=== PATIENT | male | born 1985 | race Caucasian/White ===

== ENCOUNTER 2019-06-04 09:30 | Emergency (ER) | payer OTHER ==
[~2019-06-04] VITALS: Ht 180.3 cm; Wt 73.5 kg
[2019-06-04] MEDS ORDERED: RANITIDINE 150150 M1 PO (09:53)
[2019-06-04] MEDS ORDERED: TRAZODONE 150150 M1 PO (09:53)
[2019-06-04] MEDS ORDERED: PROZAC10 M1 PO (09:54)
[2019-06-04] MEDS ORDERED: AMOXICILLIN 50500 MG PO (10:38)
[2019-06-04] MEDS ORDERED: MEDROLDOSEPACK PO (10:38)
[2019-06-04 10:58] LABS: HEMATOCRIT 41.9 % (42.0-52.0); HEMOGLOBIN 14.3 gm/dL (14.0-18.0); MCHC 34.1 g/dL (28.0-37.0); MPV 8.5 fl. (7.2-11.1); NUCLEATED RBCS 0 /100WBC; PLATELET COUNT* 219 thou/uL (150-400); RBC 4.76 mil/uL (4.50-6.00); RDW-CV 12.6 % (10.5-14.5); WBC 6.6 thou/uL (4.0-11.0)
[2019-06-04 11:09] LABS: CALCIUM 9.1 mg/dL (8.5-10.1); POTASSIUM 3.4 mmol/L (3.5-5.1)
[2019-06-04 11:14] LABS: ALBUMIN 4.4 g/dL (3.4-5.0); TOTAL BILIRUBIN 0.6 mg/dL (<0.1-1.0); TOTAL PROTEIN 7.9 g/dL (6.4-8.2)
[2019-06-04 11:39] LABS: ABSOLUTE LYMPHOCYTES 0.6 thou/uL (0.8-5.3); ABSOLUTE MONOCYTES 0.3 thou/uL (0.0-1.2); ABSOLUTE NEUTROPHILS 5.7 thou/uL (1.6-8.1); PLATELET ESTIMATE ADEQUATE
[2019-06-04 11:50] VITALS: BP 104/68
--- NOTE | 2019-06-05 10:55 | EKG ---
[place] [address] ELECTROCARDIOGRAM REPORT Name: JORY MARINA Room: [facility]#: [id number] Admission: 06/04/19 Attend Phys: Discharge: 06/04/19 Date of : 87 Report #: [id number] THIS REPORT FOR: //name// [facility] ED Test Date: 2019-06-04 Test Time: 10:44:34 Pat Name: JORY SALAS Department: Room: Gender: M Cancer Registry Manager: RANDY : 1985 Requested By: Dayo Malin Order Number: [id number] MD: Dean Thakkar Measurements Intervals [place] Rate: 83 P: 74 ID: [id number] QRS: 93 QRSD: 101 T: 57 QT: 367 QTc: 432 Interpretive Statements Sinus rhythm Borderline right axis deviation RSR' in V1 or V2, probably normal variant No previous ECG available for comparison Electronically Signed On 06-05-2019 10:55:15 TIME CHECKER by Dean Thakkar [email or web address] <ELECTRONICALLY SIGNED> By: Dean Thakkar MD, [facility] 06/05/19 1055 1044 1044 Dean Thakkar MD, FACC /EPI
== END 2019-06-04 11:52 | disposition home or self-care (01) ==
LOC: M.ERS 09:30
PROVIDERS: Physician Assistant
DX: H92.01 Otalgia, right ear (principal); R53.1 Weakness; R42 Dizziness and giddiness; K21.9 Gastro-esophageal reflux disease without esophagitis; F32.9 Major depressive disorder, single episode, unspecified; F41.9 Anxiety disorder, unspecified